=== PATIENT | female | born 2000 | race Caucasian/White ===

== ENCOUNTER 2024-06-20 14:52 | Emergency (ER) | payer OTHER ==
[2024-06-20 15:03] VITALS: BP 141/87; PULSE 88; RESP 18; TEMP 98.5
--- NOTE | 2024-06-20 15:24 | ED ---
General Adult HPI - General Chief complaint: Animal Bite Stated complaint: [facility] cat bite L wrist and arm Time Seen by Provider: 06/20/24 15:13 Source: patient Mode of arrival: ambulatory Limitations: no limitations - History of Present Illness Initial comments: Patient is a pleasant 23-year-old female presenting today for evaluation of cat bite sustained at work. 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 Patient is unsure of her tetanus status however does not want a tetanus vaccine. The cat's rabies status is unknown however it has been retained at the half-way and will be monitored. Patient denies numbness in her hand is able to move her extremity through full range of motion. States allergy to amoxicillin is mild and "feeling sick". - Related Data Previous Rx's Medication Instructions Recorded Doxycycline 0 mg PO BID 10 Days #20 tab 06/20/24 metroNIDAZOLE [Flagyl] 500 mg PO TID 10 Days #30 tab 06/20/24 Allergies Allergy/AdvReac Type Severity Reaction Status Date / Time amoxicillin AdvReac Nausea & Verified 06/20/24 15:03 Vomiting Review of Systems ROS Statement: Those systems with pertinent positive or pertinent negative responses have been documented in the HPI. ROS Other: All systems not noted in ROS Statement are negative. Past Medical History Past Medical History: No Reported History History of Any Multi-Drug Resistant Organisms: None Reported Past Surgical History: No Surgical Hx Reported Past Psychological History: No Psychological Hx Reported Smoking Status: Never smoker Past Alcohol Use History: None Reported Past Drug Use History: None Reported General Exam - General Exam Comments Initial Comments: Visual Physical Exam Vital signs reviewed General: Well-appearing, nontoxic, no acute distress. Head: Normocephalic, atraumatic Eyes: PERRLA, EOMI ENT: Airway patent Chest: Nonlabored breathing Skin: No visual rash, normal skin tone, superficial linear abrasions to the left forearm bleeding controlled, 4 superficial puncture wounds to the lateral aspect of the left wrist, 2 small puncture wounds to the medial aspect of the proximal right upper extremity just superior to the elbow Neuro: Alert and oriented 3 Musculoskeletal: No gross abnormalities. 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 sent in by a medical professional or institution (SUSHIL Steward, SALES LEADER, urgent care, hospital, or detention...) When possible be specific @ -No Did you speak to anyone other than the patient for history (EMS, parent, family, police, friend...)? What history was obtained from this source @ -No Did you review nursing and triage notes (agree or disagree)? Why? @ -I reviewed nursing and triage notes Differential Diagnosis (chest pain, altered mental status, abdominal pain women, abdominal pain men, vaginal bleeding, weakness, fever, dyspnea, syncope, headache, dizziness, GI bleed, back pain, seizure, CVA, palpatations, mental health, musculoskeletal)? @ -Not applicable EKG interpreted by me (3pts min.). @ -As above X-rays interpreted by me (1pt min.). @ -None done CT interpreted by me (1pt min.). @ -None done U/S interpreted by me (1pt. min.). @ -None done What testing was considered but not performed or refused? (CT, X-rays, U/S, labs)? Why? @ -None What meds were considered but not given or refused? Why? @Tdap vaccine and rabies vaccine were offered and considered however patient declined these Did you discuss the management of the patient with other professionals (professionals i.e. SUSHIL Steward, SALES LEADER, lab, RT, psych nurse, social worker aide, composition roll maker and cutter, teacher, ship's officer, child support case officer)? Give summary @ -No Was smoking cessation discussed for >3mins.? @ -No Was critical care preformed (if so, how long)? @ -No Were there social determinants of health that impacted care today? How? (Homelessness, low income, unemployed, alcoholism, drug addiction, transportation, low edu. Level, literacy, decrease access to med. care, residential, rehab)? @ -No Was there de-escalation of care discussed even if they declined (Discuss DNR or withdrawal of care, Hospice)? @ -No What co-morbidities impacted this encounter? (DM, HTN, Smoking, COPD, CAD, Cancer, CVA, ARF, Chemo, Hep., AIDS, mental health diagnosis, sleep apnea, morbid obesity)? @ -None Was patient admitted / discharged? Hospital course, mention meds given and route, prescriptions, significant lab abnormalities, going to OR and other pertinent info. @Discharge-patient is a pleasant 23-year-old female presenting for evaluation of cat bite sustained at work of a feral cat. On my assessment patient is comfortable in no acute distress, exam shows linear abrasions to the left forearm with puncture wounds to the distal forearm and distal proximal left upper extremity. Bleeding controlled. I had an extensive discussion of the risk and benefits of updating her tetanus shot and receiving the rabies vaccine however she politely declined. Patient will be given prescription for Flagyl and doxycycline, she has already washed her arm however we extensively washed her forearm and bite wounds here as well. The linear abrasions were placed in a loose clean dry dressing, patient was made aware of signs and symptoms warranting return to the emergency department and the importance of taking antibiotics as prescribed. All questions were answered and patient was comfortable discharge home In my medical judgment there is currently no evidence of an immediate life- threatening or surgical condition. Discharge is therefore indicated at this time. Discharge treatment instructions, follow up instructions, and appropriate emergency department return precautions were discussed with the patient and/or medical decision maker. Patient and/or medical decision maker expressed understanding of and agreed with the treatment plan, follow up instructions, and emergency department return precaution. All patient's and/or medical decision m sylvain's questions were answered. The patient was instructed to return to the ED for any changes in symptoms, persistent symptoms, inability to obtain proper follow-up or for any further concerns. Patient received verbal and written instructions for this condition. Undiagnosed new problem with uncertain prognosis? @ -No Drug Therapy requiring intensive monitoring for toxicity (Heparin, Nitro, Insu angelica, Cardizem)? @ -No Were any procedures done? @ -No Diagnosis/symptom? @Cat bite Acute, or Chronic, or Acute on Chronic? Acute Uncomplicated (without systemic symptoms) or Complicated (systemic symptoms)? @Uncomplicated Side effects of treatment? @ -No Exacerbation, Progression, or Severe Exacerbation? @ -No Poses a threat to life or bodily function? How? (Chest pain, [place], SC, pneumonia, PE, COPD, DKA, ARF, appy, cholecystitis, CVA, Diverticulitis, Homicidal, Suicidal, threat to staff... and all critical care pts) @ -No Disposition Clinical Impression: Cat bite Disposition: HOME SELF-CARE Instructions (If sedation given, give patient instructions): Animal Bite (ED) Additional Instructions: Every disease is a spectrum and a small chance still exists that a serious condition could develop, for this reason, please monitor yourself closely for new, changing or worsening symptoms, uncontrolled pain, signs of infection such as worsening redness, discharge from your wounds, redness spreading from your wounds, swelling of your hands or forearm, fever, inability to tolerate/keep down fluids or your medications, inability to follow up with outpatient providers as instructed and should you experience these symptoms or should you have any further concerns for your wellbeing please return to the ED or call 911 immediately. Is very important that you keep wounds clean and dry. You may wash them daily with warm soapy water. Keep them covered while at work. Cat Bites are a high risk for infection so please take antibiotics as prescribed and watch closely for any signs of infection listed above. Additionally please follow-up with your primary care provider within the next 48 to 72 hours for reevaluation of your wound and regarding today's visit. PLEASE call your primary care physician as soon as possible to arrange / discuss plan for followup appointment. Appointment in the next 1-3 days is strongly encouraged if possible. PLEASE let us know here before you leave if there is anything further we can do to be of any assistance. Take care and feel Better! Prescriptions: Doxycycline 0 mg PO BID 10 Days #20 tab metroNIDAZOLE [Flagyl] 500 mg PO TID 10 Days #30 tab Is patient prescribed a controlled substance at d/c from ED?: No Referrals: None,Stated [Primary Care Provider] - 1-2 days
== END 2024-06-20 23:05 | disposition home or self-care (01) ==
LOC: EC 14:52
DX: S41.152A Open bite of left upper arm, initial encounter (principal); S61.552A Open bite of left wrist, initial encounter; S50.812A Abrasion of left forearm, initial encounter; Z88.0 Allergy status to penicillin; W55.01XA Bitten by cat, initial encounter; W55.03XA Scratched by cat, initial encounter; Y99.0 Civilian activity done for income or pay
CPT/HCPCS: 99282